=== PATIENT | male | born 1940 | race Caucasian/White ===

== ENCOUNTER 2021-07-15 10:27 | Day surgery (SDC) | payer MEDICARE ==
[~2021-07-15] VITALS: Ht 185.4 cm; Wt 79.5 kg
[2021-07-15] VITALS (7 sets, daily range): BP systolic 101–125; BP diastolic 48–94; PULSE 62–92; TEMP 97.2–98.2
[2021-07-15] MEDS ORDERED: XARELTO10 MG PO (11:51)
--- NOTE | 2021-07-15 12:30 | NUR ---
Grandson's here. Daughter and grandson's talk with Serenity from tax services professional re: need for DPOA and Living Will and options for low income housing due to patient's inability to care for home and self.
--- NOTE | 2021-07-15 13:57 | NUR ---
[employer] Professor received consult from [facility] for patient who does not have Advance Directives and is here for outpatient surgery. Per [place]ham, the family was interested in DPOA-HC. Patient was not fully alert and oriented at the time of consult. SW met with patient's daughter, Rita and provided DPOA-HC form and provided education on advance directives. Patient is not and has four children, two of these children are his grandchildren that he legally adopted.
[2021-07-16 00:10] VITALS: BP 122/67; PULSE 66; TEMP 97.5
[2021-07-16 04:03] VITALS: BP 126/65; PULSE 74; TEMP 98.4
[2021-07-16 08:00] VITALS: BP 102/42; PULSE 98; TEMP 97.6
--- NOTE | 2021-07-16 09:04 | NUR ---
PT SITTING UP IN CHAIR, OLMSTEAD CATHETER IN PLACE, DRAINING DEPENDENTLY, URINE IS DAISHA. PT IS PLEASANT ET COOPERATIVE, FAMILY @ BEDSIDE. PT HAS MESH UNDERWEAR ON BUT NO DRESSING IS IN PLACE. PT STATES THAT HE CANNOT REMEMBER IF A DRESSING WAS ON HIS PENIS EARLIER OR NOT, HAS BEEN FORGETFUL. PT'S PENIS IS PURPLE ET BRUISED. PT DENIES PAIN. SCANT AMOUNT OF BLOODY DRAINAGE IS SEEN ON PT'S BRIEFS.
--- NOTE | 2021-07-16 09:50 | NUR ---
Patient scheduled to discharge later today. SW followed up with patient and patient's daughter at bedside to follow up on DPOA-HC paperwork. Patient is agreeable to completing form listing his daughter Rita as his primary agent and his grandson Deja Arcos as his seconday agent. Singed copy placed in patients chart and copies provided back to the patient.
--- NOTE | 2021-07-16 10:22 | NUR ---
Initial visit; Patient and his family member thanked Physician Asst for looking in on him and offering God's blessings and keeping him in her prayers.
--- NOTE | 2021-07-16 10:30 | NUR ---
PT DISCHARGED TO HOME WITH FAMILY. PT WALKED TO PT ENTRANCE TO GET INTO PRIVATE VEHICLE, ACCOMPANIED BY ANG BLEVINS. PT ET FAMILY GIVEN DISCHARGE INSTRUCTIONS ET SUPPLIES FOR OLMSTEAD CATHETER, DEMONSTRATE UNDERSTANDING OF CARE. DRAINAGE BAG CHANGED TO LEG BAG. PERIPHERAL IV INT DISCONTINUED.
== END 2021-07-16 10:30 | disposition home or self-care (01) ==
LOC: SDCO 10:27 → SURG 15:45 → SDCO 07-16 10:30
DX: C60.9 Malignant neoplasm of penis, unspecified (principal); Z87.891 Personal history of nicotine dependence
CPT/HCPCS: OP; J0690; J1100; J1885; J2405; J2704; J3010; J7120